=== PATIENT | male | born 1990 | race Caucasian/White ===

== ENCOUNTER 2020-04-14 07:06 | Emergency (ER) | payer OTHER ==
[~2020-04-14] VITALS: Ht 177.8 cm; Wt 77.1 kg
[2020-04-14 07:15] VITALS: BP 107/70; Ht 177.8 cm; Wt 77.1 kg
[2020-04-14 09:58] LABS: AMPHETAMINE QUAL UR POSITIVE (See below)
== END 2020-04-14 09:04 | disposition home or self-care (01) ==
LOC: ED 07:06
PROVIDERS: Emergency Medicine
DX: S01.01XA Laceration without foreign body of scalp, initial encounter (principal); R51 Headache; M54.2 Cervicalgia; W22.8XXA Striking against or struck by other objects, initial encounter; Y93.89 Activity, other specified; Y92.89 Other specified places as the place of occurrence of the external cause; Y99.8 Other external cause status
CPT/HCPCS: 90715; J2001